=== PATIENT | male | born 1950 | race Caucasian/White ===

== ENCOUNTER 2017-02-23 17:21 | Emergency (ER) | payer SELFPAY ==
[~2017-02-23] VITALS: Ht 177.8 cm; Wt 98.5 kg
[2017-02-23] MEDS ORDERED: MOTRIN600 MG PO (19:13)
[2017-02-23] MEDS ORDERED: NORCO 5/3251 TABLET PO (19:13)
[2017-02-23] MEDS ORDERED: KEFLEX500 MG PO (19:13)
[2017-02-23 19:22] VITALS: BP 147/91
== END 2017-02-23 19:22 | disposition home or self-care (01) ==
LOC: RME 17:21 → EME 17:21 → RME 19:22
PROC: 0H98XZZ Drainage of Buttock Skin, External Approach (ICD-10-PCS; principal; 2017-02-23)
DX: L02.31 Cutaneous abscess of buttock (principal)
CPT/HCPCS: 87070; 87075; 87076; 87186; 87205; 99281; 99284